=== PATIENT | male | born 1985 | race Caucasian/White ===

== ENCOUNTER 2020-08-11 01:59 | Emergency (ER) | payer OTHER ==
[~2020-08-11] VITALS: Ht 185.4 cm; Wt 131.8 kg
--- NOTE | 2020-08-11 02:34 | PHYS DOC ---
General Adult EDM: Chief Complaint: LACERATION/AVULSION HPI: HPI: Patient is a 34 year old male who presents to the ED with laceration on the left chin. As per stepfather, patient was found in his room unconscious with his chin next to the second shelf of his dresser. Patient does not remember mechanism of injury. Patient states that his lower lip feels "tingling, like after the dentist office." Patient reports that he drank a 12 pack of beer throughout the evening. Patient denies any tobacco use or any other illicit drug use. Patient takes medication for this insomnia and depression. Patient does not remember when his last tetanus shot was. There are no further complaints at this time. Review of Systems: Review of Systems: Constitutional: Denies fever or chills Eyes: Denies redness or eye pain HENT: Denies nasal congestion or sore throat Respiratory: Denies cough or shortness of breath Cardiovascular: Denies chest pain or palpitations GI: Denies abdominal pain, nausea, or vomiting : Denies dysuria or hematuria Musculoskeletal: Denies back pain or joint pain Integument: Denies rash or skin lesions Neurologic: Denies headache, focal weakness or sensory changes Complete systems were reviewed and found to be within normal limits, except as documented in this note. [] Physical Exam: PE: Constitutional: Well developed, well nourished, no acute distress, non-toxic appearance, HENT: Normocephalic, atraumatic Eyes: PERRL, EOMI, conjunctiva normal, no discharge Neck: Cervical collar in place Lungs & Thorax: No respiratory distress, equal chest rise and fall Abdomen: Soft, no tenderness Skin: Warm, dry, 5 cm laceration on left chin, 1 centimeter abrasion above left eye Back: No tenderness, no CVA tenderness Extremities: No tenderness, ROM intact, no edema Neurologic: Alert and oriented X 3, normal motor function, normal sensory function, no focal deficits noted Psychologic: Affect normal, moderately intoxicated [] EKG: EKG: [] Radiology/Procedures: Radiology/Procedures: [] Course & Med Decision Making: Course & Med Decision Making Patient is a 34-year-old male who arrives to the ED with a 5 cm laceration on his chin. Laceration was closed with 11 sutures. Patient was instructed on proper suture care and to abstain from alcohol. Patient stable for discharge with outpatient follow-up with PCP. Discussed findings and plan with patient, who acknowledges understanding and agreement. Julia Disclaimer: Julia Disclaimer: This electronic medical record was generated, in whole or in part, using a voice recognition dictation system. Laceration/Wound Repair Laceration/Wound Repair #1: Wound Location: face (Chin) Wound's Depth, Shape: linear Wound Explored: no foreign body removed Irrigated w/ Saline (ccs): 100 Anesthesia: Lidocaine w/ Epi (2%) Wound Repaired With: sutures Suture Size/Type: 6:0 Number of Sutures: 11 Sterile Dressing Applied?: Yes Laceration/Wound Repair #2: Wound Location: mouth (Intraoral) Wound's Depth, Shape: linear Wound Length (cm): 4 Wound Explored: no foreign body removed Irrigated w/ Saline (ccs): 50 Anesthesia: Lidocaine w/ Epi (2%) Wound Repaired With: sutures Suture Size/Type: 5:0 (Plain gut) Number of Sutures: 5 Sterile Dressing Applied?: No Progress Verbal consent obtained. Time out performed. Hand hygiene utilized. Wound cleaned with ChloraPrep. Anesthesia obtained via a 25-gauge hypodermic needle with () mL's of lidocaine 2% with epinephrine. Copious irrigation performed. Wound well approximated with (sutures/tha). Patient tolerated procedure well and without difficulty. Empiric antibiotic ointment applied prior to sterile dressing. 5 cm chin laceration closed with 11 sutures. 4 cm intraoral laceration closed with 5 sutures. Departure Departure Impression: Primary Impression: Laceration of chin Qualified Codes: S01.81XA - Laceration without foreign body of other part of head, initial encounter Additional Impressions: Alcohol intoxication Qualified Codes: F10.920 - Alcohol use, unspecified with intoxication, uncomplicated Laceration of intraoral surface of lip Qualified Codes: S01.511A - Laceration without foreign body of lip, initial encounter Disposition: 01 DC HOME SELF CARE/HOMELESS Condition: STABLE Patient Instructions: Alcohol Intoxication, [id number], Laceration Care, Adult, [id number], Mouth Laceration, [id number] Additional Instructions: Do not soak your wound. You may shower. Clean wound daily with soap and water. Change dressing 2 times daily. Use over the counter antibiotic ointment with each dressing change. Sutures need to be removed in 5-7 days. Present to your family doctor or local urgent care for removal. You may also present to the ED but it will be an additional visit/charge. After suture removal you may use Vitamin E ointment to soften the wound and prevent scarring. Use tabo-yva-ifhajad ibuprofen or Tylenol for pain or discomfort. Scripts Chlorhexidine Gluconate (PERIDEX) 15 Ml Mouthwash 15 ML PO BID for 7 Days, #473 ML 0 Refills Prov: AFRICA ELLIS DO 08/11/20 AFRICA ELLIS DO Aug 11, 2020 02:34
--- NOTE | 2020-08-11 03:02 | RAD ---
CT scan of the head without contrast 08/11/2020 Clinical History: Fall. Head injury. Technique: Unenhanced, contiguous, 5 mm axial sections were obtained through the head. One or more of the following individualized dose reduction techniques were utilized for this study: 1. Automated exposure control. 2. Adjustment of the mA and/or kV according to patient size. 3. Use of iterative reconstruction technique. Findings: The ventricles and sulci are within normal limits in size and configuration. No acute paren chymal abnormality is seen. No extra-axial fluid collection is noted. No skull fracture is seen. Impression: No acute intracranial abnormality is seen. CT scan of the cervical spine without contrast 08/11/2020 Clinical history: Fall with neck injury. Technique: Unenhanced, contiguous, 0.625 mm axial sections were obtained through the cervical spine. 2. 3 mm reconstructed axial, coronal and sagittal r images were obtained. One or more of the following individualized dose reduction techniques were utilized for this study: 1. Automated exposure control. 2. Adjustment of the mA and/or kV according to patient size. 3. Use of iterative reconstruction technique. Findings: Sagittal and coronal reconstructed images demonstrate mild straightening of the normal cerv ical lordosis. No fracture or subluxation cervical vertebrae seen. No significant degenerative changes are noted. Impression: No fracture or subluxation of the cervical vertebra is identified. Electronically signed by: Fahad Miguel MD (08/11/2020 3:00 AM) [place] [id number]
--- NOTE | 2020-08-11 03:06 | RAD ---
CT scan of the facial bones without contrast 08/11/2020 Clinical history: Fall with facial injury. Chin laceration. Technique: Unenhanced, contiguous, 0.625 mm axial sections were obtained through the facial bones and orbits. 3 mm reconstructed sagittal, axial and coronal images were obtained. One or more of the following individualized dose reduction techniques were utilized for this study: 1. Automated exposure control. 2. Adjustment of the mA and/or kV according to patient size. 3. Use of iterative reconstruction technique. Findings: Subcutaneous emphysema is seen within the soft tissues anterior to the mandible consistent with the patient's history of a laceration to this region. No facial bone fracture is seen. Both orbi ts are intact. Mild mucosal thickening is seen scattered throughout the ethmoid air cells bilaterally . A 2.2 cm mucous retention cyst is seen involving the right maxillary sinus. No air-fluid level is s een. Impression: No facial bone or orbital fracture is seen. Electronically signed by: Fahad Miguel MD (08/11/2020 3:04 AM) [id number]
[2020-08-11] MEDS ORDERED: DIPH,PERTUSS(ACELL),TET VAC/PF 0.5 ML SYRINGE. VAX IM ONE (03:30)
[2020-08-11] MEDS ORDERED: NEOMY/BACITR/POLYMYXIN OINT PACKET. TP ONE (03:30)
[2020-08-11] MEDS ORDERED: LIDOCAINE 2%/EPI 1:100,000 20 ML VIAL. INJ ONE ×2 (03:30→04:30)
[2020-08-11] MEDS ORDERED: CHLO15MO2 PO (04:23)
[2020-08-11 04:42] VITALS: BP 118/62
== END 2020-08-11 05:08 | disposition home or self-care (01) ==
LOC: ER 01:59
DX: S01.81XA Laceration without foreign body of other part of head, initial encounter (principal); S01.511A Laceration without foreign body of lip, initial encounter; F10.920 Alcohol use, unspecified with intoxication, uncomplicated; Y90.9 Presence of alcohol in blood, level not specified; R51.9 Headache, unspecified; M54.2 Cervicalgia; Y28.8XXA Contact with other sharp object, undetermined intent, initial encounter; Y93.89 Activity, other specified; Y92.89 Other specified places as the place of occurrence of the external cause; Y99.8 Other external cause status
CPT/HCPCS: 12013; 70450; 70486; 72125; 90471; 90715; 99285; J3490